=== PATIENT | female | born 1990 | race Two or more races ===

== ENCOUNTER → 2022-02-11 | Outpatient (CLI) | payer MEDICAID | END | disposition home or self-care (01) | LOC: LAB 10:59 | PROVIDERS: ATTEND Obstetrics & Gynecology | DX: Z34.80 Encounter for supervision of other normal pregnancy, unspecified trimester (principal) | CPT/HCPCS: 82951; 86850; 86900; 86901 ==

== ENCOUNTER → 2022-04-01 | Outpatient (CLI) | payer MEDICAID ==
[2022-04-01 10:19] LABS: Basophils # (auto) 0 10 ^3/uL (0-0.2); Basophils % (auto) 0.2 % (0.0-2.0); Eosinophils # (auto) 0.1 10 ^3/uL (0-0.8); Eosinophils % (auto) 0.6 % (0.0-7.0); Hematocrit 34.2 % (36.0-46.0); Hemoglobin 10.9 g/dL (12.2-16.2); Lymphocytes # (auto) 1.6 10 ^3/uL (0.4-5.4); Lymphocytes % (auto) 17.8 % (10.0-50.0); Mean Corpuscular Hemoglobin 23.8 pg (28.0-32.0); Mean Corpuscular Hgb Conc. 31.8 g/dL (32.0-36.0); Monocytes # (auto) 0.4 10 ^3/uL (0-1.3); Monocytes % (auto) 4.7 % (0.0-12.0); Neutrophils # (auto) 6.8 10 ^3/uL (1.6-8.6); Neutrophils % (auto) 76.7 % (37.0-80.0); Red Blood Cells 4.56 10^6/uL (4.0-5.20); Red Cell Distribution Width 14.9 % (11.8-14.3); White Blood Cell 8.8 10^3/uL (4.4-10.8)
[2022-04-02 08:07] LABS: RPR Non Reactive (Non Reactive)
== END | disposition home or self-care (01) ==
LOC: LAB 10:07
PROVIDERS: ATTEND Obstetrics & Gynecology
DX: Z34.80 Encounter for supervision of other normal pregnancy, unspecified trimester (principal); Z3A.00 Weeks of gestation of pregnancy not specified
CPT/HCPCS: 36415; 84112; 85025; 86592

== ENCOUNTER 2022-05-04 08:53 | Observation (INO) | payer MEDICAID ==
[2022-05-04] MEDS ORDERED: PREN-96 PO (17:40)
== END 2022-05-04 17:42 | disposition home or self-care (01) ==
LOC: LDRP 14:14
PROVIDERS: ADMIT Obstetrics & Gynecology Obstetrics; ATTEND Obstetrics & Gynecology Obstetrics
DX: O62.9 Abnormality of forces of labor, unspecified (principal); Z3A.40 40 weeks gestation of pregnancy
CPT/HCPCS: 59025; 76818; 81002; G0378

== ENCOUNTER 2022-05-06 18:59 | Observation (INO) | payer MEDICAID ==
[~2022-05-06] VITALS: Ht 160 cm; Wt 73.9 kg
[~2022-05-06 18:59] MED LIST: PREN-96 PO
== END 2022-05-06 20:40 | disposition home or self-care (01) ==
LOC: LDRP 18:59
PROVIDERS: ADMIT Obstetrics & Gynecology; ATTEND Obstetrics & Gynecology
DX: O48.0 Post-term pregnancy (principal); O62.9 Abnormality of forces of labor, unspecified; Z3A.40 40 weeks gestation of pregnancy
CPT/HCPCS: 59025; 76818; 81002; G0378

== ENCOUNTER 2022-05-08 17:40 | Observation (INO) | payer MEDICAID | END 2022-05-08 20:41 | disposition home or self-care (01) | LOC: LDRP 17:40 | PROVIDERS: ADMIT Obstetrics & Gynecology; ATTEND Obstetrics & Gynecology | DX: O48.0 Post-term pregnancy (principal); O62.9 Abnormality of forces of labor, unspecified; O26.893 Other specified pregnancy related conditions, third trimester; R10.2 Pelvic and perineal pain; Z3A.40 40 weeks gestation of pregnancy | CPT/HCPCS: 59025; 76818; 81002; G0378 ==

== ENCOUNTER 2022-05-09 22:56 | Inpatient (IN) | payer MEDICAID ==
[~2022-05-09] VITALS: Ht 157.5 cm; Wt 73.5 kg
[2022-05-09] MEDS ORDERED: OXYTOCIN 10UNIT/ML 1ML VIAL ONE (23:05)
[2022-05-09] MEDS ORDERED: PHISODERM TOP SOLN 240ML BTL TOP ONE (23:05)
[2022-05-09] MEDS ORDERED: WITCH HAZEL-GLYCERIN PAD TOP ONE (23:05)
[2022-05-09] MEDS ORDERED: LIDOCAINE 2%HCL (LOCAL ANESTH.) INJ 20ML MDV ONE (23:05)
[2022-05-09] MEDS ORDERED: DERMOPLAST 60ML BOTTLE TOP ONE (23:05)
[2022-05-09] MEDS ORDERED: LACT. RINGERS/OXYTOCIN 20UNITS 1,000 ML IV ONE (23:05)
[2022-05-09] MEDS ORDERED: METHYLERGONOVINE MALEATE 0.2 MG/ML AMP IM ONE (23:24)
[2022-05-10] MEDS ORDERED: WITCH HAZEL-GLYCERIN PAD TOP PRN
[2022-05-10] MEDS ORDERED: DERMOPLAST 60ML BOTTLE TOP PRN
[2022-05-10] MEDS ORDERED: LACTATED RINGER'S 1,000 ML IV SCH
[2022-05-10] MEDS ORDERED: PHISODERM TOP SOLN 240ML BTL TOP PRN
[2022-05-10] MEDS ORDERED: LIDOCAINE 2%HCL (LOCAL ANESTH.) INJ 10ml MDV IJ PRN
[2022-05-10 00:25] LABS: Basophils # (auto) 0 10 ^3/uL (0-0.2); Basophils % (auto) 0.1 % (0.0-2.0); Eosinophils # (auto) 0 10 ^3/uL (0-0.8); Eosinophils % (auto) 0.2 % (0.0-7.0); Hematocrit 36.2 % (36.0-46.0); Lymphocytes # (auto) 1.3 10 ^3/uL (0.4-5.4); Mean Corpuscular Hemoglobin 24.5 pg (28.0-32.0); Mean Corpuscular Hgb Conc. 33.2 g/dL (32.0-36.0); Mean Corpuscular Volume 73.8 fL (80.0-100.0); Monocytes # (auto) 0.5 10 ^3/uL (0-1.3); Monocytes % (auto) 3.5 % (0.0-12.0); Neutrophils # (auto) 11.1 10 ^3/uL (1.6-8.6); Neutrophils % (auto) 86.2 % (37.0-80.0); Red Blood Cells 4.91 10^6/uL (4.0-5.20); Red Cell Distribution Width 17.6 % (11.8-14.3); White Blood Cell 12.9 10^3/uL (4.4-10.8)
[2022-05-10] MEDS ORDERED: LACT. RINGERS/OXYTOCIN 20UNITS 500 ML IV ONE ×2 (00:30)
[2022-05-10 00:31] LABS: Albumin 2.6 g/dL (3.4-5.0); BUN/Creatinine Ratio 18.5; Calcium 8.7 mg/dL (8.5-10.1); Potassium 4.3 mmol/L (3.5-5.1)
[2022-05-10 00:35] LABS: Bilirubin, Total 0.2 mg/dL (0.2-1.0); Total Protein 6.5 g/dL (6.4-8.2)
[2022-05-10 00:36] LABS: INR 0.87 (0.9-1.15); Partial Thromboplastin Time 26.8 sec (24.6-33.4)
[2022-05-10 02:53] LABS: Amphetamine Screen, Urine NEGATIVE (NEGATIVE); Barbiturate Scree,Urine NEGATIVE (NEGATIVE); Benzodiazephine Screen, Urine NEGATIVE (NEGATIVE); Cannabinoid Screen, Urine NEGATIVE (NEGATIVE); Cocaine Screen, Urine NEGATIVE (NEGATIVE); Opiate Scree,Urine NEGATIVE (NEGATIVE); Phencyclidine Screen, Urine NEGATIVE (NEGATIVE)
[2022-05-10 03:12] LABS: Urine Bacteria NONE SEEN /hpf (None Seen); Urine Blood 3+ /uL (Negative); Urine Specific Gravity 1.011 (1.001-1.035); Urine WBC 22 /hpf (0 - 5)
[2022-05-10] MEDS ORDERED: ACETAMINOPHEN 325 MG TAB PO PRN (03:15)
[2022-05-10] MEDS ORDERED: ONDANSETRON ODT 4 MG TAB PO PRN (03:15)
[2022-05-10 07:00] VITALS: BP 111/54
[2022-05-10 11:00] VITALS: BP 120/60
[2022-05-10] MEDS: IBUPROFEN 600 MG TAB PO PRN ×2 (11:56→19:36)
[2022-05-10 15:00] VITALS: BP 118/68
[2022-05-10 19:30] VITALS: BP 125/70
[2022-05-10] MEDS ORDERED: DOCUSATE SOD 100 MG CAP PO SCH (22:00)
[2022-05-10 23:30] VITALS: BP 122/70
[2022-05-11 03:00] VITALS: BP 107/66
[2022-05-11] MEDS: IBUPROFEN 600 MG TAB PO PRN (04:45)
[2022-05-11 07:00] VITALS: BP 111/70
[2022-05-12 06:06] LABS: RPR Non Reactive (Non Reactive)
== END 2022-05-11 09:50 | disposition home or self-care (01) | DRG 560 ==
LOC: LDRP 22:56
PROVIDERS: ADMIT Obstetrics & Gynecology; ATTEND Obstetrics & Gynecology
PROC: 10E0XZZ Delivery of Products of Conception, External Approach (ICD-10-PCS; principal; 2022-05-09)
PROC: 0KQM0ZZ Repair Perineum Muscle, Open Approach (ICD-10-PCS; 2022-05-09)
PROC: 0UQMXZZ Repair Vulva, External Approach (ICD-10-PCS; 2022-05-09)
DX: O70.1 Second degree perineal laceration during delivery (principal); Z37.0 Single live birth; O71.82 Other specified trauma to perineum and vulva; Z20.822 Contact with and (suspected) exposure to COVID-19; Z3A.40 40 weeks gestation of pregnancy
CPT/HCPCS: 36415; 59025; 59409; 76818; 80053; 80307; 81001; 81002; 85025; 85610; 85730; 86592; 86850; 86900; 86901; 94760; 96365; 96366; 96372; G0378; J2590